=== PATIENT | female | born 1955 | race Caucasian/White ===

== ENCOUNTER 2017-01-15 10:02 | Day surgery (SDC) | payer OTHER ==
[2017-01-15] MEDS ORDERED: PROPOFOL 10 MG/ML VIAL IV ONE (14:00)
[2017-01-15] MEDS ORDERED: LIDOCAINE 2% MDV (20MG/ML) 20ML VIAL IV ONE (14:00)
[2017-01-15] MEDS ORDERED: MIDAZOLAM HCL 2MG/2ML VIAL IV ONE (14:00)
--- NOTE | 2017-01-16 17:09 | Operative Note ---
DATE OF SURGERY: 01/15/2017 OPERATION: Screening COLONOSCOPY. PREOPERATIVE DIAGNOSIS: Colon cancer screening. POSTOPERATIVE DIAGNOSIS: Fair prep, otherwise negative exam. PROCEDURE: After informed consent was obtained from the patient, she was placed in the left lateral decubitus position in the endoscopy suite, sedated and monitored by the department of anesthesia. Digital rectal exam was unremarkable. A well-lubricated [id number] colonoscope was inserted into the rectum and advanced to the cecum. Preparation quality was fair at best. Numerous areas were lavaged, fluid and stool removed. Small polyps may have been obscured by the preparation quality. I was unable to visualize any polyps throughout the cecum, ascending colon, transverse colon, descending colon, sigmoid colon, and rectum. J-turn views of the anorectum were unremarkable. The endoscope was straightened, the rectal ampulla deflated, and the endoscope was removed. RECOMMENDATIONS: The patient should resume her medications and diet. Based on the preparation quality, I would recommend a repeat exam in 1 year with a 2-day prep. As always, thank you for allowing me to participate in the healthcare of your patients. CC: MD Dr. Nanci Mcghee
== END 2017-01-15 12:40 | disposition home or self-care (01) ==
LOC: HOP 10:02
PROVIDERS: ATTEND Internal Medicine Gastroenterology
DX: Z12.11 Encounter for screening for malignant neoplasm of colon (principal)